=== PATIENT | female | born 1955 | race Two or more races ===

== ENCOUNTER 2018-04-26 17:55 | Emergency (ER) | payer SELFPAY ==
[~2018-04-26] VITALS: Ht 162.6 cm; Wt 55.0 kg
[2018-04-26] MEDS ORDERED: FAMOTIDINE 20MG/2ML VIAL IV STA (20:01)
[2018-04-26] MEDS ORDERED: ONDANSETRON HCL 4MG/2ML INJ IV STA (20:01)
[2018-04-26] MEDS ORDERED: SODIUM CHLORIDE 0.9% 1,000 ML IV ONE (20:01)
[2018-04-26 20:45] LABS: BASOPHILS % 1.3 % (0.0-2.0); EOSINOPHILS % 0.4 % (0.0-5.0); HEMATOCRIT. 52.4 % (36.0-48.0); HEMOGLOBIN. 17.7 g/dL (12.0-16.0); LYMPHOCYTES % 23.2 % (20.0-50.0); MEAN CORPUSCULAR HEMOGLOBIN 31.6 pg (28.0-32.0); MEAN CORPUSCULAR VOLUME 93.7 fL (81.0-99.0); MEAN PLATELET VOLUME 10.3 fl (7.4-10.4); MONOCYTES % 10.4 % (2.0-8.0); NEUTROPHILS % 64.7 % (40.0-76.0); PLATELET 284 x1000/uL (130-400); RED BLOOD CELL COUNT 5.59 mill/uL (4.2-5.4); RED CELL DISTRIBUTION WIDTH 12.6 % (11.6-14.6)
[2018-04-26 20:49] LABS: CHLORIDE 92 mEq/L (98-107)
[2018-04-26 20:53] LABS: ETHANOL BLOOD < 10 mg/dL
[2018-04-26 20:56] LABS: INR 1.1; PROTHROMBIN TIME 10.9 sec (9.1-11.1)
[2018-04-26] MEDS ORDERED: ENALAPRIL 2.5MG/2ML VIAL 2ML IV ONE (21:30)
[2018-04-26 21:40] LABS: CLARITY URINE CLEAR (CLEAR); COLOR URINE YELLOW (YELLOW); KETONES URINE NEGATIVE (NEGATIVE); LEUKOCYTE ESTERASE URINE TRACE (NEGATIVE); NITRITE URINE NEGATIVE (NEGATIVE); OCCULT BLOOD URINE TRACE (NEGATIVE); PROTEIN URINE NEGATIVE (NEGATIVE); SPECIFIC GRAVITY URINE 1.004 (1.005-1.030)
[2018-04-26 21:54] LABS: *AMPHETAMINES SCREEN URINE NEGATIVE (NEGATIVE); *BARBITURATES SCREEN URINE NEGATIVE (NEGATIVE)
[2018-04-26 21:55] LABS: *BENZODIAZEPINES SCREEN URINE NEGATIVE (NEGATIVE); *COCAINE SCREEN URINE PRESUMTIVE POSITIVE (NEGATIVE); CANNABINOID URINE SCREEN NEGATIVE (NEGATIVE); METHADONE URINE SCREEN NEGATIVE (NEGATIVE); OPIATES URINE SCREEN NEGATIVE (NEGATIVE); PHENCYCLIDINE URINE SCREEN NEGATIVE (NEGATIVE)
[2018-04-26] MEDS ORDERED: KCL 10MEQ/50ML PREMIX 50 ML IV ONE (22:00)
[2018-04-26] MEDS ORDERED: POTASSIUM CHLORIDE 20MEQ TABLET SR PO ONE (22:00)
[2018-04-27 01:22] VITALS: BP 145/80
== END 2018-04-27 01:24 | disposition home or self-care (01) ==
LOC: ER 17:55
DX: R10.9 Unspecified abdominal pain (principal); R11.10 Vomiting, unspecified; E87.8 Other disorders of electrolyte and fluid balance, not elsewhere classified; I10 Essential (primary) hypertension; F14.10 Cocaine abuse, uncomplicated; K21.9 Gastro-esophageal reflux disease without esophagitis; J44.9 Chronic obstructive pulmonary disease, unspecified
CPT/HCPCS: 36415; 74176; 80053; 80305; 80320; 81003; 83690; 84484; 85025; 85610; 93005; 96361; 96374; 96375; 99284; J2405; J3480; J3490; J7030; G0480